=== PATIENT | male | born 1975 | race Caucasian/White ===

== ENCOUNTER → 2016-12-02 | Outpatient (CLI) | payer OTHER ==
[~2016-12-02] MED LIST: ATIV0.5T OR; PAXI20TA OR; VIST25CA OR; XANA3TAB OR
== END ==
LOC: M LAB 07:34
PROVIDERS: ATTEND Family Medicine
DX: E78.4 Other hyperlipidemia (principal); E03.9 Hypothyroidism, unspecified

== ENCOUNTER → 2017-07-08 | Outpatient (CLI) | payer OTHER ==
[2017-07-08 08:32] LABS: MEAN CORPUSCULAR HEMOGLOBIN 33.1 pg (27.0-33.0); MEAN CORPUSCULAR VOLUME 97.4 fl (80.0-96.0); RED CELL DISTRIBUTION WIDTH 12.4 % (11.5-14.5); WHITE BLOOD COUNT 3.9 K/mm3 (4.0-10.0)
[2017-07-08 09:03] LABS: ALBUMIN 4.1 GM/DL (3.2-5.2); ALBUMIN/GLOBULIN RATIO 1.28 (1.00-1.93); ALKALINE PHOSPHATASE 63 U/L (45-117); ALT/SGPT 37 U/L (12-78); ANION GAP 8 MEQ/L (8-16); AST/SGOT 31 U/L (15-37); BILIRUBIN,TOTAL 0.7 MG/DL (0.2-1.0); BLOOD UREA NITROGEN 11 MG/DL (7-18); CALCIUM LEVEL 9.1 MG/DL (8.5-10.1); CARBON DIOXIDE LEVEL 28 MEQ/L (21-32); CHLORIDE LEVEL 101 MEQ/L (98-107); CHOLESTEROL LEVEL 198 MG/DL (<200); CREATININE FOR GFR 0.82 MG/DL (0.70-1.30); GLOMERULAR FILTRATION RATE > 60.0 (>60); GLUCOSE, FASTING 86 MG/DL (70-105); SODIUM LEVEL 137 MEQ/L (136-145); TOTAL PROTEIN 7.3 GM/DL (6.4-8.2); TRIGLYCERIDES LEVEL 154 MG/DL (<150)
--- NOTE | 2017-07-08 09:05 | REP ---
Clinical: Hypertension . Comparison: 07/29/2016 . Technique: PA and lateral. Findings: The mediastinum and cardiac silhouette are normal. The lung sarah are clear and without acute consolidation, effusion, or pneumothorax. The skeletal structures are intact and normal. Impression: 1. No acute cardiopulmonary process. Signed by Jose Maria Lema MD 07/08/2017 08:56 A
--- NOTE | 2017-07-08 14:36 | ECGEPIP ---
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
== END ==
LOC: M LAB 07:53
PROVIDERS: ATTEND Family Medicine
DX: I10 Essential (primary) hypertension (principal); R53.83 Other fatigue

== ENCOUNTER 2017-11-23 15:41 | Inpatient (IN) | payer OTHER ==
[2017-11-23 16:31] LABS: HEMATOCRIT 42.5 % (42.0-52.0); HEMOGLOBIN 14.9 g/dl (14.0-18.0); MEAN CORPUSCULAR HEMOGLOBIN 32.7 pg (27.0-33.0); MEAN CORPUSCULAR HGB CONC 35.1 g/dl (32.0-36.5); MEAN CORPUSCULAR VOLUME 93.4 fl (80.0-96.0); PLATELET COUNT, AUTOMATED 196 10^3/uL (150-450); RED BLOOD COUNT 4.55 10^6/uL (4.30-6.10); RED CELL DISTRIBUTION WIDTH 11.9 % (11.5-14.5); WHITE BLOOD COUNT 6.8 10^3/uL (4.0-10.0)
[2017-11-23 16:57] LABS: AMPHETAMINES LEVEL URINE NEGATIVE (NEGATIVE); BARBITURATES URINE NEGATIVE (NEGATIVE); BENZODIAZEPINES URINE POSITIVE (NEGATIVE); CANNABINOIDS URINE NEGATIVE (NEGATIVE); COCAINE METABOLITE URINE NEGATIVE (NEGATIVE); METHADONE URINE NEGATIVE (NEGATIVE); OPIATES URINE NEGATIVE (NEGATIVE); PHENCYCLIDINE URINE NEGATIVE (NEGATIVE)
[2017-11-23 17:10] LABS: ALBUMIN 4.4 GM/DL (3.2-5.2); ALBUMIN/GLOBULIN RATIO 1.29 (1.00-1.93); ALKALINE PHOSPHATASE 81 U/L (45-117); ALT/SGPT 39 U/L (12-78); ANION GAP 14 MEQ/L (8-16); AST/SGOT 51 U/L (7-37); BILIRUBIN,DIRECT 0.3 MG/DL (0.0-0.2); BILIRUBIN,TOTAL 0.8 MG/DL (0.2-1.0); BLOOD UREA NITROGEN 8 MG/DL (7-18); CALCIUM LEVEL 9.4 MG/DL (8.5-10.1); CARBON DIOXIDE LEVEL 23 MEQ/L (21-32); CHLORIDE LEVEL 95 MEQ/L (98-107); CREATININE FOR GFR 0.97 MG/DL (0.70-1.30); ETHYL ALCOHOL (ETHANOL) 0.197 % (0.000-0.010); GLOMERULAR FILTRATION RATE > 60.0 (>60); GLUCOSE, FASTING 78 MG/DL (70-100); POTASSIUM SERUM 4.2 MEQ/L (3.5-5.1); SALICYLATE LEVEL < 1.7 MG/DL (5.0-30.0); SODIUM LEVEL 132 MEQ/L (136-145); TOTAL PROTEIN 7.8 GM/DL (6.4-8.2)
[2017-11-23 17:11] LABS: ACETAMINOPHEN LEVEL < 2.0 UG/ML (10.0-30.0)
[2017-11-23] MEDS: THIAMINE 100 MG TAB PO (21:00)
[2017-11-24] MEDS ORDERED: MOM 30ML SUSPENSION UDC PO (01:45)
[2017-11-24] MEDS ORDERED: MAALOX 30 ML SUSP *UDC PO (01:45)
[2017-11-24] MEDS: LORazepam 1 MG TAB PO (04:24)
[2017-11-24] MEDS: FOLIC ACID 1 MG TAB PO (08:30)
[2017-11-24] MEDS: MULTIVITAMINS/MINERALS THERAP 1 TAB PO (08:30)
[2017-11-24] MEDS: THIAMINE 100 MG TAB PO ×2 (08:30→20:27)
[2017-11-24] MEDS: LORazepam 2 MG TAB PO ×2 (08:30→13:01)
[2017-11-24 12:17] LABS: ALBUMIN 4.5 GM/DL (3.2-5.2); ALBUMIN/GLOBULIN RATIO 1.22 (1.00-1.93); ALKALINE PHOSPHATASE 82 U/L (45-117); ALT/SGPT 41 U/L (12-78); ANION GAP 12 MEQ/L (8-16); AST/SGOT 50 U/L (7-37); BILIRUBIN,TOTAL 1.1 MG/DL (0.2-1.0); BLOOD UREA NITROGEN 13 MG/DL (7-18); CARBON DIOXIDE LEVEL 27 MEQ/L (21-32); CHLORIDE LEVEL 98 MEQ/L (98-107); CREATININE FOR GFR 0.98 MG/DL (0.70-1.30); GLOMERULAR FILTRATION RATE > 60.0 (>60); GLUCOSE, FASTING 83 MG/DL (70-100); POTASSIUM SERUM 4.2 MEQ/L (3.5-5.1); SODIUM LEVEL 137 MEQ/L (136-145); TOTAL PROTEIN 8.2 GM/DL (6.4-8.2)
[2017-11-24] MEDS: GABAPENTIN 300 MG CAP PO ×2 (15:02→20:26)
[2017-11-24 15:59] LABS: HEPATITIS B SURFACE ANTIGEN NEGATIVE (NEGATIVE)
[2017-11-24] MEDS: clonazePAM 1 MG TAB PO ×2 (16:14→20:26)
[2017-11-24 16:26] LABS: HEPATITIS C VIRUS ABY INDEX < 0.0 INDEX (<0.8)
[2017-11-24 16:27] LABS: HEPATITIS B CORE ANTIBODY IGM NEGATIVE (NEGATIVE)
[2017-11-24 16:28] LABS: HEPATITIS A ANTIBODY IGM NEGATIVE (NEGATIVE)
[2017-11-24] MEDS: traZODone 50 MG TAB PO (20:26)
[2017-11-24] MEDS: ROSUVASTATIN 10 MG TAB (CRESTOR) PO (20:26)
[2017-11-25 08:02] LABS: ALBUMIN 4.5 GM/DL (3.2-5.2); ALBUMIN/GLOBULIN RATIO 1.29 (1.00-1.93); ALKALINE PHOSPHATASE 75 U/L (45-117); ALT/SGPT 49 U/L (12-78); ANION GAP 7 MEQ/L (8-16); AST/SGOT 60 U/L (7-37); BLOOD UREA NITROGEN 12 MG/DL (7-18); CALCIUM LEVEL 9.7 MG/DL (8.5-10.1); CARBON DIOXIDE LEVEL 31 MEQ/L (21-32); CHLORIDE LEVEL 100 MEQ/L (98-107); CREATININE FOR GFR 1.02 MG/DL (0.70-1.30); GLOMERULAR FILTRATION RATE > 60.0 (>60); GLUCOSE, FASTING 91 MG/DL (70-100); POTASSIUM SERUM 3.7 MEQ/L (3.5-5.1); SODIUM LEVEL 138 MEQ/L (136-145)
[2017-11-25] MEDS: GABAPENTIN 300 MG CAP PO (08:09)
[2017-11-25] MEDS: clonazePAM 1 MG TAB PO (08:09)
[2017-11-25] MEDS: THIAMINE 100 MG TAB PO (08:09)
[2017-11-25] MEDS: MULTIVITAMINS/MINERALS THERAP 1 TAB PO (08:09)
[2017-11-25] MEDS: FOLIC ACID 1 MG TAB PO (08:09)
== END 2017-11-25 12:30 | disposition home or self-care (01) | DRG 880 ==
LOC: M PSY 11-24 00:33 → M ED 15:41 → M ED INP 23:01
DX: F41.1 Generalized anxiety disorder (principal); E87.1 Hypo-osmolality and hyponatremia; F43.23 Adjustment disorder with mixed anxiety and depressed mood; Z79.899 Other long term (current) drug therapy; E78.5 Hyperlipidemia, unspecified; Z98.52 Vasectomy status; R94.5 Abnormal results of liver function studies

== ENCOUNTER → 2017-12-09 | Outpatient (CLI) | payer OTHER ==
[2017-12-09 08:31] LABS: FREE THYROXINE INDEX 2.9 % (1.4-3.8); T UPTAKE 32 % (33-40); THYROXINE (T4) 9.2 UG/DL (4.5-12.0)
[2017-12-09 10:34] LABS: TOTAL 25(OH) VITAMIN D 23.1 NG/ML (30.0-100.0)
== END ==
LOC: M LAB 07:10
DX: F41.1 Generalized anxiety disorder (principal)

== ENCOUNTER → 2018-04-29 | Outpatient (CLI) | payer OTHER ==
[2018-04-29 08:01] LABS: HEMATOCRIT 45.8 % (42.0-52.0); HEMOGLOBIN 15.6 g/dl (13.5-17.5); MEAN CORPUSCULAR HEMOGLOBIN 33.1 pg (27.0-33.0); MEAN CORPUSCULAR HGB CONC 34.1 g/dl (32.0-36.5); PLATELET COUNT, AUTOMATED 239 10^3/uL (150-450); RED BLOOD COUNT 4.72 10^6/uL (4.30-6.10); RED CELL DISTRIBUTION WIDTH 11.9 % (11.5-14.5)
[2018-04-29 08:45] LABS: ALBUMIN/GLOBULIN RATIO 1.18 (1.00-1.93); ALKALINE PHOSPHATASE 65 U/L (45-117); ALT/SGPT 29 U/L (12-78); ANION GAP 10 MEQ/L (8-16); AST/SGOT 23 U/L (7-37); BILIRUBIN,TOTAL 0.6 MG/DL (0.2-1.0); BLOOD UREA NITROGEN 14 MG/DL (7-18); CALCIUM LEVEL 9.2 MG/DL (8.5-10.1); CARBON DIOXIDE LEVEL 28 MEQ/L (21-32); CHLORIDE LEVEL 102 MEQ/L (98-107); CHOLESTEROL LEVEL 177 MG/DL (<200); CHOLESTEROL RISK RATIO 2.424 (<5); CREATININE FOR GFR 1.02 MG/DL (0.70-1.30); GLOMERULAR FILTRATION RATE > 60.0 (>60); GLUCOSE, FASTING 91 MG/DL (70-100); HDL CHOLESTEROL 73 MG/DL (>40); LDL CHOLESTEROL 87.8 MG/DL (<100); NON-HDL-C 104 MG/DL; POTASSIUM SERUM 4.2 MEQ/L (3.5-5.1); PROSTATIC SPECIFIC AG MONITOR 1.49 NG/ML (< 4.0); SODIUM LEVEL 140 MEQ/L (136-145); TOTAL PROTEIN 7.4 GM/DL (6.4-8.2); TRIGLYCERIDES LEVEL 81 MG/DL (<150)
[2018-04-29 08:48] LABS: ESTIMATED AVERAGE GLUCOSE 103 MG/DL (60-110); HEMOGLOBIN A1c 5.2 %
[2018-04-29 11:03] LABS: TESTOSTERONE 519 NG/DL (241-827); TOTAL 25(OH) VITAMIN D 27.9 NG/ML (30.0-100.0)
== END ==
LOC: M LAB 07:03
DX: R53.83 Other fatigue (principal); I10 Essential (primary) hypertension; N40.0 Benign prostatic hyperplasia without lower urinary tract symptoms
CPT/HCPCS: 84403

== ENCOUNTER 2018-05-12 16:59 | Emergency (ER) | payer OTHER ==
[2018-05-12 17:30] LABS: BASO # 0.1 10^3/uL (0.0-0.2); BASO % 0.9 % (0.0-1.0); EOS # 0.1 10^3/uL (0.0-0.50); EOS % 1.3 % (0.0-3.0); HEMATOCRIT 41.2 % (42.0-52.0); HEMOGLOBIN 14.7 g/dl (13.5-17.5); IMMATURE GRANULOCYTE % 0.4 % (0-3.0); LYMPH # 1.6 10^3/uL (1.5-4.5); LYMPH % 29.4 % (24.0-44.0); MEAN CORPUSCULAR HEMOGLOBIN 32.7 pg (27.0-33.0); MEAN CORPUSCULAR HGB CONC 35.7 g/dl (32.0-36.5); MEAN CORPUSCULAR VOLUME 91.6 fl (80.0-96.0); MONO # 0.6 10^3/uL (0.0-0.8); MONO % 10.2 % (0.0-5.0); NEUTROPHILS # 3.2 10^3/uL (1.8-7.7); NEUTROPHILS % 57.8 % (36.0-66.0); PLATELET COUNT, AUTOMATED 206 10^3/uL (150-450); RED CELL DISTRIBUTION WIDTH 11.8 % (11.5-14.5); WHITE BLOOD COUNT 5.6 10^3/uL (4.0-10.0)
[2018-05-12 17:42] LABS: VENOUS BASE EXCESS 0.9 (-2.0-2.0); VENOUS HCO3 25.8 MEQ/L (23.0-27.0); VENOUS O2 SATURATION 98.2 % (60.0-80.0); VENOUS PARTIAL PRESSURE CO2 42.1 mmHg (38.0-50.0); VENOUS PARTIAL PRESSURE O2 109.4 mmHg (30.0-50.0); VENOUS PH 7.405 UNITS (7.330-7.430); VENOUS STANDARD HCO3 25.3 MEQ/L; VENOUS TOTAL CO2 27.1 MEQ/L (24.0-28.0)
[2018-05-12] MEDS: NS 1,000 ML IV (17:53)
[2018-05-12 18:05] LABS: ALBUMIN/GLOBULIN RATIO 1.18 (1.00-1.93); ALKALINE PHOSPHATASE 89 U/L (45-117); ALT/SGPT 38 U/L (12-78); ANION GAP 12 MEQ/L (8-16); AST/SGOT 51 U/L (7-37); BILIRUBIN,DIRECT 0.2 MG/DL (0.0-0.2); BILIRUBIN,TOTAL 0.5 MG/DL (0.2-1.0); BLOOD UREA NITROGEN 8 MG/DL (7-18); CALCIUM LEVEL 8.2 MG/DL (8.5-10.1); CARBON DIOXIDE LEVEL 26 MEQ/L (21-32); CHLORIDE LEVEL 98 MEQ/L (98-107); CPK CREATINE PHOSPHOKINASE 449 U/L (39-308); ETHYL ALCOHOL (ETHANOL) 0.275 % (0.000-0.010); GLOMERULAR FILTRATION RATE > 60.0 (>60); GLUCOSE, FASTING 99 MG/DL (70-100); POTASSIUM SERUM 3.8 MEQ/L (3.5-5.1); SALICYLATE LEVEL 1.9 MG/DL (5.0-30.0); SODIUM LEVEL 136 MEQ/L (136-145); TOTAL PROTEIN 7.4 GM/DL (6.4-8.2)
[2018-05-12 18:06] LABS: ACETAMINOPHEN LEVEL < 2.0 UG/ML (10.0-30.0)
[2018-05-12 18:29] LABS: AMPHETAMINES LEVEL URINE NEGATIVE (NEGATIVE); BARBITURATES URINE NEGATIVE (NEGATIVE); BENZODIAZEPINES URINE NEGATIVE (NEGATIVE); CANNABINOIDS URINE NEGATIVE (NEGATIVE); COCAINE METABOLITE URINE NEGATIVE (NEGATIVE); METHADONE URINE NEGATIVE (NEGATIVE); OPIATES URINE NEGATIVE (NEGATIVE); PHENCYCLIDINE URINE NEGATIVE (NEGATIVE)
== END 2018-05-12 19:33 | disposition home or self-care (01) ==
LOC: M ED 16:59
DX: F10.129 Alcohol abuse with intoxication, unspecified (principal); E78.5 Hyperlipidemia, unspecified; F32.9 Major depressive disorder, single episode, unspecified; Z79.899 Other long term (current) drug therapy
CPT/HCPCS: 70450

== ENCOUNTER → 2019-01-18 | Outpatient (CLI) | payer OTHER ==
[~2019-01-18] MED LIST changes: +ALPR2TAB3 PO; +CLON1TAB8 PO; +CRES10TA32 PO; +CRES20TA PO; +FOLI1TAB11 PO; +GABA-843 PO; +LORA1TAB12 PO; +LORA2CON5 PO; +PATIENT COMMENT; +THIA100TA PO; +TRAZO50TA PO; +VITMTA PO
[2019-01-18 07:45] LABS: HEMATOCRIT 44.3 % (42.0-52.0); HEMOGLOBIN 14.8 g/dl (13.5-17.5); MEAN CORPUSCULAR HEMOGLOBIN 32.6 pg (27.0-33.0); MEAN CORPUSCULAR HGB CONC 33.4 g/dl (32.0-36.5); MEAN CORPUSCULAR VOLUME 97.6 fl (80.0-96.0); PLATELET COUNT, AUTOMATED 199 10^3/uL (150-450); RED BLOOD COUNT 4.54 10^6/uL (4.30-6.10); WHITE BLOOD COUNT 5.5 10^3/uL (4.0-10.0)
[2019-01-18 07:59] LABS: HEMOGLOBIN A1c 5.5 %
[2019-01-18 08:18] LABS: ALBUMIN 3.9 GM/DL (3.2-5.2); ALT/SGPT 29 U/L (12-78); BILIRUBIN,TOTAL 0.5 MG/DL (0.2-1.0); BLOOD UREA NITROGEN 12 MG/DL (7-18); CALCIUM LEVEL 8.9 MG/DL (8.5-10.1); CARBON DIOXIDE LEVEL 28 MEQ/L (21-32); CHLORIDE LEVEL 102 MEQ/L (98-107); CHOLESTEROL LEVEL 193 MG/DL (<200); CHOLESTEROL RISK RATIO 2.797 (<5); CREATININE FOR GFR 0.94 MG/DL (0.70-1.30); GLOMERULAR FILTRATION RATE > 60.0 (>60); GLUCOSE, FASTING 95 MG/DL (70-100); HDL CHOLESTEROL 69 MG/DL (>40); LDL CHOLESTEROL 107 MG/DL (<100); NON-HDL-C 124 MG/DL; POTASSIUM SERUM 3.9 MEQ/L (3.5-5.1); PROSTATIC SPECIFIC AG MONITOR 1.54 NG/ML (< 4.00); SODIUM LEVEL 137 MEQ/L (136-145); TRIGLYCERIDES LEVEL 85 MG/DL (<150)
[2019-01-18 10:17] LABS: TESTOSTERONE 359 NG/DL (241-827)
--- NOTE | 2019-01-18 10:31 | REP ---
Chest x-ray: Two views. History: Retention. Fatigue. Hypothyroid. . Comparison study: July 08, 2017 . Findings: The lungs are well inflated and free of infiltrate. The pleural angles are sharp. The heart size is normal. Pulmonary vasculature is not increased. No significant bony abnormality is seen. Impression: Negative chest x-ray. Electronically Signed by Christopher Coelho MD 01/18/2019 10:24 A
--- NOTE | 2019-01-18 21:28 | ECGEPIP ---
Stationary ECG Study 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
== END ==
LOC: M LAB 07:10
PROVIDERS: ATTEND Family Medicine
DX: I10 Essential (primary) hypertension (principal); R53.83 Other fatigue; E03.9 Hypothyroidism, unspecified

== ENCOUNTER 2019-12-21 11:13 | Emergency (ER) | payer OTHER ==
[~2019-12-21] VITALS: Ht 170.2 cm; Wt 74.5 kg
[~2019-12-21 11:13] MED LIST changes: +CRES10TA PO; -CRES10TA32 PO; -CRES20TA PO; +CRES20TA2 PO; -LORA1TAB12 PO; +LORA1TAB4 PO; +TRAZ1TAB10 PO; -TRAZO50TA PO
[2019-12-21] MEDS ORDERED: ROSU10TA6 PO (11:27)
[2019-12-21] MEDS ORDERED: LORA1TAB4 PO (11:27)
[2019-12-21 12:12] LABS: HEMATOCRIT 45.8 % (42.0-52.0); HEMOGLOBIN 15.5 g/dl (13.5-17.5); MEAN CORPUSCULAR HGB CONC 33.8 g/dl (32.0-36.5); MEAN CORPUSCULAR VOLUME 94.6 fl (80.0-96.0); PLATELET COUNT, AUTOMATED 225 10^3/uL (150-450); RED BLOOD COUNT 4.84 10^6/uL (4.30-6.10); WHITE BLOOD COUNT 5.4 10^3/uL (4.0-10.0)
[2019-12-21 12:29] LABS: AMPHETAMINES LEVEL URINE NEGATIVE (NEGATIVE); BARBITURATES URINE NEGATIVE (NEGATIVE); BENZODIAZEPINES URINE NEGATIVE (NEGATIVE); CANNABINOIDS URINE NEGATIVE (NEGATIVE); COCAINE METABOLITE URINE NEGATIVE (NEGATIVE); METHADONE URINE NEGATIVE (NEGATIVE); OPIATES URINE NEGATIVE (NEGATIVE); PHENCYCLIDINE URINE NEGATIVE (NEGATIVE)
[2019-12-21 12:45] LABS: ACETAMINOPHEN LEVEL < 2.0 UG/ML (10.0-30.0); ALBUMIN 4.1 GM/DL (3.2-5.2); ALT/SGPT 38 U/L (12-78); BILIRUBIN,DIRECT < 0.1 MG/DL (0.0-0.2); BILIRUBIN,TOTAL 0.4 MG/DL (0.2-1.0); BLOOD UREA NITROGEN 4 MG/DL (7-18); CARBON DIOXIDE LEVEL 25 MEQ/L (21-32); CHLORIDE LEVEL 104 MEQ/L (98-107); CREATININE FOR GFR 0.76 MG/DL (0.70-1.30); ETHYL ALCOHOL (ETHANOL) 0.374 % (0.000-0.010); GLOMERULAR FILTRATION RATE > 60.0 (>60); GLUCOSE, FASTING 106 MG/DL (70-100); POTASSIUM SERUM 5.4 MEQ/L (3.5-5.1); SALICYLATE LEVEL 1.9 MG/DL (5.0-30.0); SODIUM LEVEL 137 MEQ/L (136-145); THYROID STIMULATING HORMONE 0.647 uIU/ML (0.358-3.740); TOTAL PROTEIN 7.7 GM/DL (6.4-8.2)
[2019-12-21 14:38] VITALS: BP 130/89
== END 2019-12-21 15:42 | disposition home or self-care (01) ==
LOC: EDBD 11:13 → M ED 11:13
DX: F10.229 Alcohol dependence with intoxication, unspecified (principal); Y90.1 Blood alcohol level of 20-39 mg/100 ml; F33.9 Major depressive disorder, recurrent, unspecified; F41.9 Anxiety disorder, unspecified
CPT/HCPCS: 36415; 80048; 80076; 80307; 84443; 85027; 99284; G0480

== ENCOUNTER → 2021-03-12 | Outpatient (CLI) | payer OTHER ==
[~2021-03-12] MED LIST changes: +GABA-282 PO; -GABA-843 PO; +ROSU10TA6 PO
[2021-03-12 11:18] LABS: POTASSIUM SERUM 4.1 MEQ/L (3.5-5.1)
== END ==
LOC: M PLALAB 08:01
PROVIDERS: ATTEND Family Medicine
DX: I10 Essential (primary) hypertension (principal)

== ENCOUNTER → 2021-05-08 | Outpatient (CLI) | payer OTHER ==
[2021-05-08 11:13] LABS: HEMATOCRIT 43.4 % (42.0-52.0); HEMOGLOBIN 14.2 g/dl (13.5-17.5); MEAN CORPUSCULAR HEMOGLOBIN 31.2 pg (27.0-33.0); MEAN CORPUSCULAR HGB CONC 32.7 g/dl (32.0-36.5); MEAN CORPUSCULAR VOLUME 95.4 fl (80.0-96.0); PLATELET COUNT, AUTOMATED 317 10^3/uL (150-450); RED BLOOD COUNT 4.55 10^6/uL (4.30-6.10); WHITE BLOOD COUNT 10.2 10^3/uL (4.0-10.0)
[2021-05-08 11:29] LABS: HEMOGLOBIN A1c 5.3 %
[2021-05-08 12:05] LABS: ALBUMIN 3.9 GM/DL (3.2-5.2); ALT/SGPT 33 U/L (12-78); BILIRUBIN,TOTAL 0.3 MG/DL (0.2-1.0); BLOOD UREA NITROGEN 16 MG/DL (7-18); CALCIUM LEVEL 9.4 MG/DL (8.5-10.1); CARBON DIOXIDE LEVEL 26 MEQ/L (21-32); CHLORIDE LEVEL 105 MEQ/L (98-107); CHOLESTEROL LEVEL 151 MG/DL (<200); CHOLESTEROL RISK RATIO 3.682 (<5); CREATININE FOR GFR 0.98 MG/DL (0.70-1.30); FOLATE 11.5 NG/ML (>5.4); GLOMERULAR FILTRATION RATE > 60.0 (>60); GLUCOSE, FASTING 85 MG/DL (70-100); HDL CHOLESTEROL 41 MG/DL (>40); LDL CHOLESTEROL 93 MG/DL (<100); NON-HDL-C 110 MG/DL; POTASSIUM SERUM 4.1 MEQ/L (3.5-5.1); SODIUM LEVEL 136 MEQ/L (136-145); TESTOSTERONE 197 NG/DL (241-827); THYROID STIMULATING HORMONE 0.817 uIU/ML (0.358-3.740); TOTAL PROTEIN 6.9 GM/DL (6.4-8.2); TRIGLYCERIDES LEVEL 87 MG/DL (<150); VITAMIN B12 LEVEL 559 PG/ML (247-911)
== END ==
LOC: M LAB 10:13
PROVIDERS: ATTEND Family Medicine
DX: E03.9 Hypothyroidism, unspecified (principal); R53.83 Other fatigue; D64.9 Anemia, unspecified

== ENCOUNTER 2021-06-03 09:27 | Inpatient (IN) | payer OTHER ==
[~2021-06-03] VITALS: Ht 170.2 cm; Wt 78.5 kg
[2021-06-03] MEDS: METOPROLOL TART 25 MG TABLET PO SCH ×2 (09:00→20:03)
[2021-06-03] MEDS ORDERED: VIMP100T (09:53)
[2021-06-03] MEDS ORDERED: METO1TAB87 PO (09:53)
[2021-06-03] MEDS ORDERED: SODIUM (09:53)
[2021-06-03] MEDS ORDERED: LORazepam 2 MG/ML VIAL IV STA (10:08)
[2021-06-03] MEDS ORDERED: MULTIVITAMIN -ADULT INJECTION 10 ML, THIAMINE INJection 100 MG, FOLIC ACID 1 MG in NS 1... IV ONE (10:10)
[2021-06-03] MEDS ORDERED: OXAZEPAM 15 MG CAP PO ONE (10:10)
--- NOTE | 2021-06-03 10:36 | REP ---
INDICATION: Altered Mental Status. COMPARISON: Multiple the latest 01/18/2019 PA and lateral views TECHNIQUE: Portable FINDINGS: The technique utilized in obtaining the radiograph has magnified the cardiac silhouette and accentuated the interstitial markings. The superior mediastinal structures are midline. The cardiac silhouette is unremarkable in size, shape, and position. The diaphragmatic surfaces of the lungs are regular, and the costophrenic angles are clear. The pulmonary sarah are clear. The imaged osseous structures are intact. IMPRESSION: There is no acute cardiopulmonary disease. <Electronically signed by Jam Fung > 06/03/21 1037
[2021-06-03 10:51] LABS: BASO % 0.2 % (0.0-1.0); HEMATOCRIT 38.9 % (42.0-52.0); HEMOGLOBIN 13.4 g/dl (13.5-17.5); LYMPH # 0.4 10^3/uL (1.5-5.0); LYMPH % 2.7 % (24.0-44.0); MEAN CORPUSCULAR HEMOGLOBIN 31.2 pg (27.0-33.0); MEAN CORPUSCULAR HGB CONC 34.4 g/dl (32.0-36.5); MEAN CORPUSCULAR VOLUME 90.7 fl (80.0-96.0); MONO # 0.8 10^3/uL (0.0-0.8); MONO % 6.1 % (2.0-8.0); NEUTROPHILS # 11.6 10^3/uL (1.5-8.5); NEUTROPHILS % 89.9 % (36.0-66.0); PLATELET COUNT, AUTOMATED 156 10^3/uL (150-450); RED BLOOD COUNT 4.29 10^6/uL (4.30-6.10); WHITE BLOOD COUNT 12.9 10^3/uL (4.0-10.0)
[2021-06-03 11:26] LABS: ACETAMINOPHEN LEVEL < 2.0 UG/ML (10.0-30.0); ALBUMIN 3.9 GM/DL (3.2-5.2); ALT/SGPT 35 U/L (12-78); BILIRUBIN,DIRECT 0.2 MG/DL (0.0-0.2); BILIRUBIN,TOTAL 0.6 MG/DL (0.2-1.0); BLOOD UREA NITROGEN 5 MG/DL (7-18); CARBON DIOXIDE LEVEL 19 MEQ/L (21-32); CHLORIDE LEVEL 96 MEQ/L (98-107); CK-MB VALUE MASS 2.8 NG/ML (<3.6); CPK CREATINE PHOSPHOKINASE 329 U/L (39-308); CREATININE FOR GFR 0.82 MG/DL (0.70-1.30); ETHYL ALCOHOL (ETHANOL) < 0.003 % (0.000-0.010); GLOMERULAR FILTRATION RATE > 60.0 (>60); GLUCOSE, FASTING 86 MG/DL (70-100); MB/CK RELATIVE INDEX 0.85 (< OR =4); SALICYLATE LEVEL 1.9 MG/DL (5.0-30.0); SODIUM LEVEL 131 MEQ/L (136-145); THYROID STIMULATING HORMONE 0.555 uIU/ML (0.358-3.740); TOTAL PROTEIN 6.7 GM/DL (6.4-8.2); TROPONIN I < 0.02 NG/ML (< 0.10)
--- NOTE | 2021-06-03 11:28 | REP ---
INDICATION: altered mental status. COMPARISON: 05/12/2018 TECHNIQUE: 4.5 mm contiguous transaxial sections were obtained from the skull base to the cerebral convexities with thin cuts through the posterior fossa without the administration of intravenous contrast. FINDINGS: Since the last examination an area of decreased density has developed in the left temporal lobe. There is no shift of the midline structures. There are no extra-axial fluid collections. The ventricles and sulci are otherwise within normal limits. There is no change in appearance of the deep white matter with the exception of the aforementioned. The visualized paranasal sinuses and mastoid air cells are again seen to be clear. IMPRESSION: Encephalomalacia seen in the left temporal lobe consistent with chronic/subacute stroke related findings. Evolving acute change cannot be ruled out by this exam. Follow up with MRI. <Electronically signed by Jam Fung > 06/03/21 1123
[2021-06-03 12:06] LABS: AMPHETAMINES LEVEL URINE NEGATIVE (NEGATIVE); BARBITURATES URINE NEGATIVE (NEGATIVE); BENZODIAZEPINES URINE NEGATIVE (NEGATIVE); CANNABINOIDS URINE NEGATIVE (NEGATIVE); COCAINE METABOLITE URINE NEGATIVE (NEGATIVE); METHADONE URINE NEGATIVE (NEGATIVE); OPIATES URINE NEGATIVE (NEGATIVE); PHENCYCLIDINE URINE NEGATIVE (NEGATIVE)
[2021-06-03] MEDS ORDERED: HYDR1CAP25 PO (12:54)
[2021-06-03] MEDS ORDERED: SODI1TAB6 PO (12:54)
[2021-06-03] MEDS ORDERED: MULTTAB61 PO (12:54)
[2021-06-03] MEDS ORDERED: HOME MED LIST COMPLETE! XX SCH (12:55)
[2021-06-03] MEDS ORDERED: ACETAMINOPHEN TAB 650MG DOSE (2X325MG) PO PRN (13:15)
[2021-06-03] MEDS ORDERED: LORazepam 2 MG TAB PO PRN (13:15)
--- NOTE | 2021-06-03 13:38 | HPEPDOC ---
General Date of Admission 06/03/21 Date of Service: Jun 03, 2021 Chief Complaint The patient is a 45-year-old male admitted with a reason for visit of Seizure. 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 Patient stated that a few days ago he started drinking alcohol 12 packs of beer every day. Patient has a long history of alcohol abuse and he has been sober for few months. 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 In ER patient was found to have white blood count of 12.9, sodium 131, CPK 329. CT head showed Encephalomalacia seen in the left temporal lobe consistent with chronic/subacute stroke related findings. When I saw the patient in the ER patient was alert, oriented and jessica ke Home Medications Scheduled Metoprolol Tartrate (Metoprolol Tartrate) 25 Mg Tablet, 25 MG PO BID, (Reported) Multivitamin (Multivitamins) 1 Each Tablet, 1 TAB PO QHS, (Reported) Rosuvastatin Calcium (Rosuvastatin Calcium) 10 Mg Tablet, 10 MG PO QHS, (Reported) Sodium Chloride (Sodium Chloride) 1 Gm Tablet, 1 GM PO TID, (Reported) Scheduled PRN Hydroxyzine Pamoate (Hydroxyzine Pamoate) 25 Mg Capsule, 25 MG PO QID PRN for ANXIETY, (Reported) Allergies Coded Allergies: No Known Allergies (Verified Allergy, Unknown, 12/21/19) Past Medical History Medical History anxiety, depression, alcohol abuse, hypertension, hyperlipidemia, traumatic left subdural hematoma, left temporal intraparenchymal hemorrhage, suicidal ideation Family History I personally reviewed and found not pertinent Social History * Smoker: current smoker Alcohol: heavy Drugs: denies A-FIB/CHADSVASC A-FIB History Current/History of A-Fib/PAF?: No Current PO Anticoag Therapy: No Review of Systems Constitutional: Denies: Chills, Fever Eyes: Denies: Pain ENT: Denies: Head Aches Skin: Denies: Rash, Lesions Pulmonary: Denies: Dyspnea Cardiovascular: Denies: Chest Pain Gastrointestinal: Denies: Nausea, Vomiting Genitourinary: Denies: Dysuria Hematologic: Denies: Bruising Endocrine: Denies: Polydipsia, Polyphagia Musculoskeletal: Denies: Neck Pain Neurological: Denies: Weakness, Numbness Psych: Reports: Anxiety Physical Examination General Exam: Positive: Alert, Cooperative, Moderate Distress Eye Exam: Positive: PERRLA ENT Exam: Positive: Atraumatic Neck Exam: Positive: Supple; Negative: JVD Chest Exam: Positive: Clear to auscultation Heart Exam: Positive: Rate Normal Telemetry: Positive: No significant arrhythmia Abdomen Exam: Positive: Normal bowel sounds Extremity Exam: Negative: Clubbing Skin Exam: Positive: Nl turgor and temperature Neuro Exam: Positive: Normal Gait, Normal Speech, Strength at 5/5 X4 ext, Cranial Nerves 3-12 NL Psych Exam: Positive: Anxiety, Oriented x 3 Vital Signs Vital Signs Date Time Temp Pulse Resp B/P (MAP) Pulse Ox O2 Delivery O2 Flow Rate FiO2 06/03/21 13:00 93 131/83 (99) 96 Room Air 06/03/21 09:49 98.2 24 Laboratory Data Labs 24H Laboratory Tests 2 06/03/21 10:34: Immature Granulocyte % (Auto) 1.1, Neutrophils (%) (Auto) 89.9H, Lymphocytes (%) (Auto) 2.7L, Monocytes (%) (Auto) 6.1, Eosinophils (%) (Auto) 0.0, Basophils (%) (Auto) 0.2, Neutrophils # (Auto) 11.6H, Lymphocytes # (Auto) 0.4L, Monocytes # (Auto) 0.8, Eosinophils # (Auto) 0.0, Basophils # (Auto) 0.0, Nucleated Red Blood Cells % (auto) 0.0, Anion Gap 16, Glomerular Filtration Rate > 60.0, Calcium Level 9.0, Total Bilirubin 0.6, Direct Bilirubin 0.2, Aspartate Amino Transf (AST/SGOT) 40H, Alanine Aminotransferase (ALT/SGPT) 35, Alkaline Phosphatase 73, Total Creatine Kinase 329H, Creatine Kinase MB 2.8, Creatine Kinase MB Relative Index 0.85, Troponin I < 0.02, Total Protein 6.7, Albumin 3.9, Albumin/Globulin Ratio 1.4, Thyroid Stimulating Hormone (TSH) 0.555, Salicylates Level 1.9L, Acetaminophen Level < 2.0L, Ethyl Alcohol Level < 0.003 06/03/21 10:37: Bedside Glucose (Misc Panel) 90 06/03/21 11:27: Urine Color STRAW, Urine Appearance CLEAR, Urine pH 6.0, Urine Specific Van 1.004, Urine Protein NEGATIVE, Urine Glucose (UA) NEGATIVE, Urine Ketones 1+H, Urine Blood NEGATIVE, Urine Nitrite NEGATIVE, Urine Bilirubin NEGATIVE, Urine Urobilinogen 0.2, Urine Leukocyte Esterase NEGATIVE, Urine WBC (Auto) 0, Urine RBC (Auto) 2, Urine Hyaline Casts (Auto) 0, Urine Bacteria (Auto) NEGATIVE, Urine Squamous Epithelial Cells 0, Urine Sperm (Auto) , Urine Opiates Screen NEGATIVE, Urine Methadone Screen NEGATIVE, Urine Barbiturates Screen NEGATIVE, Urine Phencyclidine Screen NEGATIVE, Urine Amphetamines Screen NEGATIVE, Urine Benzodiazepines Screen NEGATIVE, Urine Cocaine Metabolite Screen NEGATIVE, Urine Cannabinoids Screen NEGATIVE 06/03/21 12:55: CBC/BMP Laboratory Tests 06/03/21 10:34 Assessment/Plan Patient is 45 years old male with past medical history of anxiety, depression, alcohol abuse, hypertension, hyperlipidemia, traumatic left subdural hematoma, 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 Patient stated that a few days ago he started drinking alcohol 12 packs of beer every day. Patient has a long history of alcohol abuse and he has been sober for few months. 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 In ER patient was found to have white blood count of 12.9, sodium 131, CPK 329. CT head showed Encephalomalacia seen in th e left temporal lobe consistent with chronic/subacute stroke related findings. When I saw the patient in the ER patient was alert, oriented and awake Problems (1) Metabolic encephalopathy Status: Acute Problem Text: Resolved Most likely secondary to alcohol withdrawal and seizures I will restart antiseizure medications with Keppra 500 mg twice daily (2) Alcohol withdrawal Status: Acute Problem Text: Continue CIWA (3) Hyponatremia Status: Acute Problem Text: Most likely secondary to alcohol abuse Continue salt tablets We will check urine and serum osmolarity and urine lites (4) Depression Status: Chronic Problem Text: Patient did not take any antidepressants I will restart antidepressant after resolution of alcohol withdrawal (5) Abnormal CT of brain Status: Chronic Problem Text: Neurological exam benign, if patient develop focal deficiency I will proceed with MRI Most likely changes on CT scan secondary to previous traumatic left subdural hematoma and left temporal intraparenchymal hemorrhage Plan / VTE VTE Prophylaxis Ordered?: Yes GEORGE SERRANO DO Jun 03, 2021 13:37
[2021-06-03 13:50] LABS: RSV AMPLIFICATION NEGATIVE (NEGATIVE)
[2021-06-03] MEDS: levETIRAcetam 250MG TABLET (KEPPRA) PO SCH ×2 (13:54→20:03)
[2021-06-03 15:26] LABS: SODIUM LEVEL 136 MEQ/L (136-145)
[2021-06-03 15:33] LABS: OSMOLALITY SERUM 274 MOSM/KG (275-295)
[2021-06-03 16:00] VITALS: BP 113/75
[2021-06-03] MEDS: SODIUM CHLORIDE 1 GM TAB PO SCH ×2 (18:09→20:02)
[2021-06-03 18:12] VITALS: BP 129/96
[2021-06-03 19:55] VITALS: BP 119/76
[2021-06-03] MEDS: THIAMINE 100 MG TAB PO SCH (20:01)
[2021-06-03] MEDS ORDERED: ROSUVASTATIN 10 MG TAB (CRESTOR) PO SCH (21:00)
[2021-06-03 22:00] VITALS: BP 138/80
--- NOTE | 2021-06-03 23:03 | REPVR ---
PROCEDURE INFORMATION: Exam: MR Head Without Contrast Exam date and time: 06/03/2021 9:55 PM Age: 45 years old Clinical indication: Patient HX: Seizures, alcohol detox; Additional info: Stroke TECHNIQUE: Imaging protocol: MR of the head without contrast. COMPARISON: CT Head without contrast 06/03/2021 10:58 AM FINDINGS: Limitations: The exam is degraded by patient motion artifact. Brain: No evidence of an acute infarction. There is encephalomalacia in the left anterior temporal lobe. No mass effect or midline shift. White matter is unremarkable Cerebral ventricles: Normal. No ventriculomegaly. Bones/joints: Unremarkable. Paranasal sinuses: Normal as visualized. No acute sinusitis. Mastoid air cells: Normal as visualized. No mastoid effusion. Soft tissues: Unremarkable. IMPRESSION: 1. Motion limited exam. 2. Encephalomalacia in the left anterior temporal lobe. 3. No acute intracranial abnormality. Electronically signed by: Neil Miller On 06/03/2021 23:03:10 PM
[2021-06-04 04:00] VITALS: BP 123/83
[2021-06-04 06:00] VITALS: BP 124/83
[2021-06-04 06:04] LABS: HEMATOCRIT 39.7 % (42.0-52.0); HEMOGLOBIN 13.5 g/dl (13.5-17.5); MEAN CORPUSCULAR HEMOGLOBIN 31.8 pg (27.0-33.0); MEAN CORPUSCULAR VOLUME 93.4 fl (80.0-96.0); PLATELET COUNT, AUTOMATED 134 10^3/uL (150-450); RED BLOOD COUNT 4.25 10^6/uL (4.30-6.10); WHITE BLOOD COUNT 3.6 10^3/uL (4.0-10.0)
[2021-06-04 06:38] LABS: ALBUMIN 3.5 GM/DL (3.2-5.2); ALT/SGPT 34 U/L (12-78); BILIRUBIN,TOTAL 0.8 MG/DL (0.2-1.0); BLOOD UREA NITROGEN 9 MG/DL (7-18); CALCIUM LEVEL 8.5 MG/DL (8.5-10.1); CARBON DIOXIDE LEVEL 25 MEQ/L (21-32); CHLORIDE LEVEL 107 MEQ/L (98-107); CREATININE FOR GFR 0.84 MG/DL (0.70-1.30); GLOMERULAR FILTRATION RATE > 60.0 (>60); GLUCOSE, FASTING 88 MG/DL (70-100); MAGNESIUM LEVEL 2.3 MG/DL (1.8-2.4); POTASSIUM SERUM 3.4 MEQ/L (3.5-5.1); SODIUM LEVEL 137 MEQ/L (136-145); TOTAL PROTEIN 6.8 GM/DL (6.4-8.2)
--- NOTE | 2021-06-04 07:02 | ECGEPIP ---
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
[2021-06-04 08:46] VITALS: BP 124/83
[2021-06-04] MEDS: METOPROLOL TART 25 MG TABLET PO SCH (08:46)
[2021-06-04] MEDS: levETIRAcetam 250MG TABLET (KEPPRA) PO SCH (08:47)
[2021-06-04] MEDS: THIAMINE 100 MG TAB PO SCH (08:47)
[2021-06-04] MEDS: SODIUM CHLORIDE 1 GM TAB PO SCH (08:47)
[2021-06-04] MEDS ORDERED: ENOXAPARIN 40MG/0.4ML SYRINGE (J1650 PER 10MG) SC SCH (09:00)
[2021-06-04] MEDS ORDERED: MULTIVITAMINS/MINERALS THERAP 1 TAB PO SCH (09:00)
[2021-06-04] MEDS ORDERED: FOLIC ACID 1 MG TAB PO SCH (09:00)
[2021-06-04] MEDS ORDERED: KEPP250T5 PO (10:15)
[2021-06-04] MEDS ORDERED: ATIV1TAB7 PO (10:48)
--- NOTE | 2021-06-04 17:55 | DS.PDOC ---
Discharge Summary General Date of Admission Jun 03, 2021 at 13:12 Date of Discharge 06/04/21 Discharge Summary PROCEDURES PERFORMED DURING STAY: [None]. ADMITTING DIAGNOSES: Metabolic encephalopathy Alcohol withdrawal Hyponatremia Depression Abnormal CT of brain DISCHARGE DIAGNOSES: Metabolic encephalopathy Alcohol withdrawal Hyponatremia Depression Abnormal CT of brain COMPLICATIONS/CHIEF COMPLAINT: Alcohol Intoxication. 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 Patient stated that a few days ago he started drinking alcohol 12 packs of beer every day. Patient has a long history of alcohol abuse and he has been sober for few months. 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 In ER patient was found to have white blood count of 12.9, sodium 131, CPK 329. CT head showed Encephalomalacia seen in the left temporal lobe consistent with chronic/subacute stroke related findings. When I saw the patient in the ER patient was alert, oriented and awake HOSPITAL COURSE: During the hospital stay the following issue addressed (1) Metabolic encephalopathy Most likely secondary to alcohol withdrawal and seizures Patient received treatment with Keppra 500 mg twice daily (2) Alcohol withdrawal CIWA (3) Hyponatremia Most likely secondary to alcohol abuse Continue salt tablets Resolved (4) Depression Patient did not take any antidepressants Follow-up with psych team in the outpatient settings (5) Abnormal CT of brain Neurological exam benign, if patient develop focal deficiency I will proceed with MRI Most likely changes on CT scan secondary to previous traumatic DISCHARGE MEDICATIONS: Please see below. ALLERGIES: Please see below. PHYSICAL EXAMINATION ON DISCHARGE: VITAL SIGNS: Please see below. General Exam: Positive: Alert, Cooperative, Moderate Distress Eye Exam: Positive: PERRLA ENT Exam: Positive: Atraumatic Neck Exam: Positive: Supple; Negative: JVD Chest Exam: Positive: Clear to auscultation Heart Exam: Positive: Rate Normal Telemetry: Positive: No significant arrhythmia Abdomen Exam: Positive: Normal bowel sounds Extremity Exam: Negative: Clubbing Skin Exam: Positive: Nl turgor and temperature Neuro Exam: Positive: Normal Gait, Normal Speech, Strength at 5/5 X4 ext, Cranial Nerves 3-12 NL Psych Exam: Positive: Anxiety, Oriented x 3 LABORATORY DATA: Please see below. IMAGING: [facility] NAME: FERNANDA NORIEGA DATE OF : 1975 BUSINESS NUMBER: [id number] AGE: 45 SEX: M REPORT #: [id number] ROOM: [facility] TECHNOLOGIST: RACHELE DOCTOR: GEORGE SERRANO DO Ordered for Date&Time: 06/03/211811 cc: [~ rep ct ivnm] Service Date&Time: 06/03/212154 This report is in Signed status. Interpretation performed by [facility]. Thank you for having your radiology procedures performed at [facility] RADIOLOGY REPORT Date&Time printed: [~ rep prt dt last] [~ rep prt tm last] Page 2 of 2 [place] [id number] RADIOLOGY REPORT This report is in Signed status. Interpretation performed by [facility]. Thank you for having your radiology procedures performed at [facility] RADIOLOGY REPORT Date&Time printed: [~ rep prt dt last] [~ rep prt tm last] Page 1 of 1 PROCEDURE INFORMATION: Exam: MR Head Without Contrast Exam date and time: 06/03/2021 9:55 PM Age: 45 years old Clinical indication: Patient HX: Seizures, alcohol detox; Additional info: Stroke TECHNIQUE: Imaging protocol: MR of the head without contrast. COMPARISON: CT Head without contrast 06/03/2021 10:58 AM FINDINGS: Limitations: The exam is degraded by patient motion artifact. Brain: No evidence of an acute infarction. There is encephalomalacia in the left anterior temporal lobe. No mass effect or midline shift. White matter is unremarkable Cerebral ventricles: Normal. No ventriculomegaly. Bones/joints: Unremarkable. Paranasal sinuses: Normal as visualized. No acute sinusitis. Mastoid air cells: Normal as visualized. No mastoid effusion. Soft tissues: Unremarkable. IMPRESSION: 1. Motion limited exam. 2. Encephalomalacia in the left anterior temporal lobe. 3. No acute intracranial abnormality. Electronically signed by: Neil Christina On 06/03/2021 23:03:10 PM DD: NEIL CHRISTINA MD 06/03/212154 DT: HAILEE 06/03/212302 DS: KENIA 08/10/21 2303 [~ rep ct labl] PROGNOSIS: Fair ACTIVITY: [As tolerated]. DIET: Cardiac DISPOSITION: Home, Self-Care. DISCHARGE INSTRUCTIONS: Stop drinking alcohol ITEMS TO FOLLOWUP ON ON OUTPATIENT: Follow-up with psychiatrist and PCP DISCHARGE CONDITION: [Stable]. TIME SPENT ON DISCHARGE: 40minutes. Vital Signs/I&Os Vital Signs Date Time Temp Pulse Resp B/P (MAP) Pulse Ox O2 Delivery O2 Flow Rate FiO2 06/04/21 08:46 82 124/83 06/04/21 06:00 97.0 17 99 Room Air I&O- Last 24 Hours up to 6 AM 06/04/21 06:00 Intake Total 815 ml Output Total 650 ml Balance 165 ml Laboratory Data Labs 24H Laboratory Tests 2 06/04/21 05:54: Nucleated Red Blood Cells % (auto) 0.0, Anion Gap 5L, Glomerular Filtration Rate > 60.0, Calcium Level 8.5, Magnesium Level 2.3, Total Bilirubin 0.8, Aspartate Amino Transf (AST/SGOT) 38H, Alanine Aminotransferase (ALT/SGPT) 34, Alkaline Phosphatase 69, Total Protein 6.8, Albumin 3.5, Albumin/Globulin Ratio 1.1 CBC/BMP Laboratory Tests 06/04/21 05:54 Discharge Medications Scheduled Levetiracetam (Keppra) 250 Mg Tablet, 500 MG PO BID Metoprolol Tartrate (Metoprolol Tartrate) 25 Mg Tablet, 25 MG PO BID, (Reported) Multivitamin (Multivitamins) 1 Each Tablet, 1 TAB PO QHS, (Reported) Rosuvastatin Calcium (Rosuvastatin Calcium) 10 Mg Tablet, 10 MG PO QHS, (Reported) Sodium Chloride (Sodium Chloride) 1 Gm Tablet, 1 GM PO TID, (Reported) Scheduled PRN Hydroxyzine Pamoate (Hydroxyzine Pamoate) 25 Mg Capsule, 25 MG PO QID PRN for ANXIETY, (Reported) Lorazepam (Ativan) 1 Mg Tablet, 1 TAB PO BIDP PRN for anxiety Allergies Coded Allergies: No Known Allergies (Verified Allergy, Unknown, 12/21/19) GEORGE SERRANO DO Jun 04, 2021 17:55
== END 2021-06-04 11:25 | disposition home or self-care (01) | DRG 896 ==
LOC: EDBD 09:27 → M ED 09:27 → M ED INP 13:12 → ENRESERV 14:57 → M MSPAV 15:45
PROVIDERS: ADMIT Internal Medicine; ATTEND Internal Medicine
DX: F10.239 Alcohol dependence with withdrawal, unspecified (principal); G93.41 Metabolic encephalopathy; E87.1 Hypo-osmolality and hyponatremia; F32.9 Major depressive disorder, single episode, unspecified; I10 Essential (primary) hypertension; E78.5 Hyperlipidemia, unspecified; R56.9 Unspecified convulsions

== ENCOUNTER → 2021-07-18 | Outpatient (CLI) | payer OTHER ==
[~2021-07-18] MED LIST changes: +ATIV1TAB7 PO; +HYDR1CAP25 PO; +KEPP250T5 PO; +METO1TAB87 PO; +MULTTAB61 PO; +SODI1TAB6 PO; +SODIUM; +VIMP100T
[2021-07-18 10:24] LABS: HEMATOCRIT 45.8 % (42.0-52.0); HEMOGLOBIN 15.3 g/dl (13.5-17.5); MEAN CORPUSCULAR HEMOGLOBIN 31.9 pg (27.0-33.0); MEAN CORPUSCULAR HGB CONC 33.4 g/dl (32.0-36.5); MEAN CORPUSCULAR VOLUME 95.4 fl (80.0-96.0); PLATELET COUNT, AUTOMATED 371 10^3/uL (150-450); WHITE BLOOD COUNT 9.3 10^3/uL (4.0-10.0)
[2021-07-18 10:55] LABS: ALT/SGPT 34 U/L (12-78); BILIRUBIN,TOTAL 0.3 MG/DL (0.2-1.0); BLOOD UREA NITROGEN 8 MG/DL (7-18); CALCIUM LEVEL 9.5 MG/DL (8.5-10.1); CARBON DIOXIDE LEVEL 28 MEQ/L (21-32); CHLORIDE LEVEL 96 MEQ/L (98-107); CREATININE FOR GFR 0.85 MG/DL (0.70-1.30); GLOMERULAR FILTRATION RATE > 60.0 (>60); GLUCOSE, FASTING 90 MG/DL (70-100); SODIUM LEVEL 132 MEQ/L (136-145); THYROID STIMULATING HORMONE 0.601 uIU/ML (0.358-3.740); TOTAL 25(OH) VITAMIN D 19.6 NG/ML (30.0-100.0); TOTAL PROTEIN 7.1 GM/DL (6.4-8.2)
[2021-07-18 10:56] LABS: VITAMIN B12 LEVEL 550 PG/ML (247-911)
== END ==
LOC: M LAB 08:34
PROVIDERS: ATTEND Family Medicine
DX: I10 Essential (primary) hypertension (principal)

== ENCOUNTER → 2022-01-16 | Outpatient (CLI) | payer OTHER ==
[2022-01-16 08:06] LABS: MEAN CORPUSCULAR HEMOGLOBIN 32.6 pg (27.0-33.0); MEAN CORPUSCULAR HGB CONC 34.9 g/dl (32.0-36.5); MEAN CORPUSCULAR VOLUME 93.5 fl (80.0-96.0); PLATELET COUNT, AUTOMATED 295 10^3/uL (150-450); WHITE BLOOD COUNT 9.9 10^3/uL (4.0-10.0)
[2022-01-16 08:44] LABS: ALBUMIN 4.1 GM/DL (3.2-5.2); ALT/SGPT 32 U/L (12-78); BILIRUBIN,TOTAL 0.3 MG/DL (0.2-1.0); BLOOD UREA NITROGEN 8 MG/DL (7-18); CALCIUM LEVEL 9.5 MG/DL (8.5-10.1); CARBON DIOXIDE LEVEL 27 MEQ/L (21-32); CHLORIDE LEVEL 99 MEQ/L (98-107); CHOLESTEROL LEVEL 158 MG/DL (<200); CHOLESTEROL RISK RATIO 2.194 (<5); CREATININE FOR GFR 0.77 MG/DL (0.70-1.30); GLOMERULAR FILTRATION RATE > 60.0 (>60); GLUCOSE, FASTING 97 MG/DL (70-100); HDL CHOLESTEROL 72 MG/DL (>40); LDL CHOLESTEROL 77 MG/DL (<100); NON-HDL-C 86 MG/DL; POTASSIUM SERUM 4.4 MEQ/L (3.5-5.1); SODIUM LEVEL 132 MEQ/L (136-145); TOTAL PROTEIN 6.9 GM/DL (6.4-8.2); TRIGLYCERIDES LEVEL 47 MG/DL (<150)
[2022-01-16 11:24] LABS: TESTOSTERONE 305 NG/DL (241-827)
[2022-01-16 19:26] LABS: HEMOGLOBIN A1c 5.4 %
== END ==
LOC: M LAB 07:25
PROVIDERS: ATTEND Family Medicine
DX: R53.83 Other fatigue (principal); I10 Essential (primary) hypertension; E11.9 Type 2 diabetes mellitus without complications

== ENCOUNTER 2022-03-12 02:13 | Emergency (ER) | payer OTHER ==
[~2022-03-12] VITALS: Ht 170.2 cm; Wt 76.2 kg
[2022-03-12] MEDS ORDERED: NS 1,000 ML IV ONE (02:20)
[2022-03-12] MEDS ORDERED: levETIRAcetam INJection 1,000 MG in D5W 100 ML IV ONE (02:25)
[2022-03-12 02:44] LABS: VENOUS HCO3 15.8 MEQ/L (23.0-27.0); VENOUS O2 SATURATION 89.7 % (60.0-80.0); VENOUS PARTIAL PRESSURE CO2 31.7 mmHg (38.0-50.0); VENOUS PH 7.316 UNITS (7.330-7.430); VENOUS STANDARD HCO3 17.2 MEQ/L; VENOUS TOTAL CO2 16.8 MEQ/L (24.0-28.0)
[2022-03-12 02:52] LABS: BASO % 0.3 % (0.0-1.0); HEMATOCRIT 39.3 % (42.0-52.0); HEMOGLOBIN 13.7 g/dl (13.5-17.5); LYMPH # 0.4 10^3/uL (1.5-5.0); LYMPH % 3.9 % (24.0-44.0); MEAN CORPUSCULAR HEMOGLOBIN 31.9 pg (27.0-33.0); MEAN CORPUSCULAR HGB CONC 34.9 g/dl (32.0-36.5); MEAN CORPUSCULAR VOLUME 91.6 fl (80.0-96.0); MONO # 0.4 10^3/uL (0.0-0.8); MONO % 3.9 % (2.0-8.0); NEUTROPHILS # 9.6 10^3/uL (1.5-8.5); NEUTROPHILS % 91.6 % (36.0-66.0); PLATELET COUNT, AUTOMATED 113 10^3/uL (150-450); RED BLOOD COUNT 4.29 10^6/uL (4.30-6.10); WHITE BLOOD COUNT 10.5 10^3/uL (4.0-10.0)
[2022-03-12 03:18] LABS: ACETAMINOPHEN LEVEL < 2.0 UG/ML (10.0-30.0); ALT/SGPT 118 U/L (12-78); BILIRUBIN,DIRECT 0.2 MG/DL (0.0-0.2); BILIRUBIN,TOTAL 0.5 MG/DL (0.2-1.0); BLOOD UREA NITROGEN 5 MG/DL (7-18); CALCIUM LEVEL 9.1 MG/DL (8.5-10.1); CARBON DIOXIDE LEVEL 17 MEQ/L (21-32); CHLORIDE LEVEL 95 MEQ/L (98-107); CREATININE FOR GFR 1.01 MG/DL (0.70-1.30); ETHYL ALCOHOL (ETHANOL) 0.286 % (0.000-0.010); GLOMERULAR FILTRATION RATE > 60.0 (>60); GLUCOSE, FASTING 143 MG/DL (70-100); POTASSIUM SERUM 3.4 MEQ/L (3.5-5.1); SALICYLATE LEVEL 2.3 MG/DL (5.0-30.0); SODIUM LEVEL 132 MEQ/L (136-145); THYROID STIMULATING HORMONE 0.742 uIU/ML (0.358-3.740); TOTAL PROTEIN 7.8 GM/DL (6.4-8.2)
[2022-03-12] MEDS ORDERED: NS 1,290 ML in IV 1 EA IV ONE (03:35)
[2022-03-12 03:42] LABS: OSMOLALITY SERUM 340 MOSM/KG (275-295)
[2022-03-12] MEDS ORDERED: KEPP1TAB PO (06:04)
[2022-03-12] MEDS ORDERED: LORazepam 1 MG TAB PO ONE (06:05)
[2022-03-12 06:19] VITALS: BP 122/80
== END 2022-03-12 06:25 | disposition home or self-care (01) ==
LOC: M ED 02:13 → EDBD 02:13 → M ED 06:25
DX: R56.9 Unspecified convulsions (principal); F10.229 Alcohol dependence with intoxication, unspecified; I10 Essential (primary) hypertension; F33.9 Major depressive disorder, recurrent, unspecified; F41.9 Anxiety disorder, unspecified; E78.5 Hyperlipidemia, unspecified; Z87.820 Personal history of traumatic brain injury; Z79.899 Other long term (current) drug therapy; F17.210 Nicotine dependence, cigarettes, uncomplicated
CPT/HCPCS: 70450; 71045; 80048; 80076; 80143; 80180; 82077; 82140; 82803; 83605; 83930; 84443; 85025; 87040; 93005; 93041; 96361; 96365; 99291; J1953

== ENCOUNTER → 2022-03-23 | Outpatient (REF) ==
[~2022-03-23] MED LIST changes: +KEPP1TAB PO
== END ==
LOC: M LAB 21:47